=== PATIENT | male | born 1955 | race Caucasian/White ===

== ENCOUNTER 2017-01-04 03:59 | Inpatient (IN) | payer OTHER ==
[~2017-01-04] VITALS: Ht 167.6 cm; Wt 83.3 kg
[2017-01-04] VITALS (20 sets, daily range): BP systolic 116–140; BP diastolic 71–90; PULSE 46–64; RESP 12–16; O2SAT 96–100
[2017-01-04] MEDS ORDERED: SODIUM CHLOR 0.9% 1000 ML INJ 1,000 ML IV ONE (04:10)
--- NOTE | 2017-01-04 04:18 | RADRPT ---
EXAM DATE/TIME: 01/04/2017 04:03 [facility] COMPARISON: No previous studies available for comparison. INDICATIONS : Stroke alert; facial droop and left sided weakness. RADIATION DOSE: 56.35 CTDIvol (mGy) This report was called by Dr Bose to Dr. Napoles at 0416 hrs MEDICAL HISTORY : None SURGICAL HISTORY : None. ENCOUNTER: Initial ACUITY: 1 day PAIN SCALE: 0/10 LOCATION: cranial TECHNIQUE: Multiple contiguous axial images were obtained of the head. Using automated exposure control and adj ustment of the mA and/or kV according to patient size, radiation dose was kept as low as reasonably a chievable to obtain optimal diagnostic quality images. DICOM format image data is available electro nically for review and comparison. FINDINGS: CEREBRUM: The ventricles are normal for age. No evidence of midline shift, mass lesion, hemorrhage or acute in farction. No extra-axial fluid collections are seen. POSTERIOR FOSSA: The cerebellum and brainstem are intact. The 4th ventricle is midline. The cerebellopontine angle i s unremarkable. EXTRACRANIAL: The visualized portion of the orbits is intact. SKULL: The calvaria is intact. No evidence of skull fracture. CONCLUSION: Normal examination. This report was called to <Dr. napoles> at <<0416 hrs>. Myron Bose MD on January 04, 2017 at 4:16 Board Certified Radiologist. This report was verified electronically.
[2017-01-04 04:20] LABS: AUTOMATED NEUTROPHIL # 2.7 TH/MM3 (1.8-7.7); BASOPHIL # 0.1 TH/MM3 (0-0.2); EOSINOPHIL # 0.3 TH/MM3 (0-0.4); EOSINOPHIL % 5.1 % (0.0-4.0); HEMATOCRIT 41.1 % (39.0-51.0); HEMO FLAGS DIFF FINAL; LYMPH % 33.7 % (9.0-44.0); MEAN CELL VOLUME 83.9 FL (80.0-100.0); MEAN CORPUSCULAR HGB CONC 33.4 % (32.0-36.0); MONO % 13.8 % (0.0-8.0); NEUT % 46.4 % (16.0-70.0); PLATELET COUNT 188 TH/MM3 (150-450); RED CELL DISTRIBUTION WIDTH 14.6 % (11.6-17.2); WHITE BLOOD COUNT 5.9 TH/MM3 (4.0-11.0)
[2017-01-04 04:24] LABS: I-STAT POTASSIUM 3.8 MMOL/L (3.5-4.9); I-STAT SODIUM 141 MMOL/L (138-146)
[2017-01-04] MEDS ORDERED: IOHEXOL 350 MG/ML 10 ML VIAL (for RAD DIAG) IVCONTRAST ONE (04:26)
[2017-01-04 04:30] LABS: APTT (PATIENT) 24.1 SEC (24.3-30.1)
--- NOTE | 2017-01-04 04:32 | PD ---
HPI Chief Complaint: Stroke Alert Time Seen by Provider: 04:10 Travel History International Travel<30 days: No Contact w/Intl Traveler<30days: No Traveled to known affect area: No History of Present Illness HPI 61-year-old male presents to the emergency department by EMS transport from his hotel room for new onset left upper extremity weakness left-sided facial droop and slurred speech. Patient states he got up out of bed at 3 AM to go to the bathroom went to the bathroom finding on the way back from using the bathroom when he got into the bed he noticed he could not roll over towards his left and fell out of bed. Patient did not hit his head. Patient was not knocked unconscious. Patient did not injure his neck or back. Patient denies any pain. Patient was noted to not be able to use his left arm and called for his who immediately noticed he had left arm weakness and left facial droop and slurred speech. It was not noted it any left lower extremity weakness. Patient has remained awake and oriented. Patient denies any vision disturbance. Patient denies any difficulty swallowing. Patient has now pain. Patient has no head pain chest pain back pain abdominal pain or extremity pain. There is been no vomiting. Patient went to bed 7 PM normal. Patient did not awaken feeling weak or confused or noticing any inability with motor function or sensory function. No prior history of CVA. Patient has dyslipidemia and intermittently takes a statin medication and on no blood thinners. Patient is otherwise in good health. Patient's had no recent surgeries. No prior thrombolytic therapy. PFSH Past Medical History Narrative Medical Dyslipidemia, back surgery; no tobacco use: Nursing notes reviewed Hx Anticoagulant Therapy: Yes Social History Tobacco Use: No Allergies-Medications (Allergen,Severity, Reaction): Coded Allergies: No Known Allergies (Verified Allergy, Unknown, 01/04/17) Reported Meds & Prescriptions Reported Meds & Active Scripts Active Narrative Medication Statin drug Review of Systems Except as stated in HPI: all other systems reviewed are Neg General / Constitutional: No: Fever, Chills Eyes: No: Diploplia, Visual changes HENT: No: Headaches, Neck Stiffness, Neck Pain Cardiovascular: No: Chest Pain or Discomfort Respiratory: No: Shortness of Breath Gastrointestinal: No: Vomiting, Abdominal Pain Genitourinary: No: Flank Pain Musculoskeletal: No: Pain Skin: No Rash Neurologic: Positive: Weakness (left upper extremity facial droop), Slurred Speech, No: Headache, Change in Mentation, Paresthesia, Incontinence, Seizures Psychiatric: No: Anxiety Hematologic/Lymphatic: No: Easy Bruising Physical Exam Narrative GENERAL: Well-developed well-nourished male in no acute distress no respiratory distress with slurred speech, GCS 15 SKIN: Warm and dry. Old 4cm x 2 cm oval shaped bruise to left lower flank. HEAD: Atraumatic. Normocephalic. No scalp soft tissue swelling. EYES: Pupils equal and round. Extraocular muscles intact. No scleral icterus. No injection or drainage. ENT: No nasal bleeding or discharge. Mucous membranes pink and moist. Airway is patent. NECK: Trachea midline. No JVD. No midline tenderness to direct palpation along the cervical spine and no bony step-off. CARDIOVASCULAR: Regular rate and rhythm. RESPIRATORY: No accessory muscle use. Clear to auscultation. Breath sounds equal bilaterally. GASTROINTESTINAL: Abdomen soft, non-tender, nondistended. Hepatic and splenic margins not palpable. MUSCULOSKELETAL: Extremities without clubbing, cyanosis, or edema. No obvious deformities. No tenderness to palpation along the thoracic or lumbar spine on log roll of the patient. No erythema or abrasion. Old 4cm x 2 cm oval shaped bruise to left lower flank. NEUROLOGICAL: Awake and alert. GCS 15. No obvious cranial nerve deficits except for left facial droop. Motor grossly within normal limits. Five out of 5 muscle strength in the arms and legs except for weakness of the left upper extremity 2 over 5 and minimal weakness of the left lower extremity. No right lower leg limb ataxia mild left lower leg ataxia on [id number]. Sensory exam grossly intact as tested. Slurred speech. PSYCHIATRIC: Appropriate mood and affect; insight and judgment normal. Data Data Last Documented VS Orders Orders Ct Brain W/O Iv Contrast(Rout) (01/04/17 ) Activity Bed Rest (01/04/17 ) Electrocardiogram (01/04/17 ) I-Stat Creatinine (01/04/17 04:10) I-Stat Profile (01/04/17 04:10) Prothrombin Time / Inr (Pt) (01/04/17 04:10) Act Partial Throm Time (Ptt) (01/04/17 04:10) Complete Blood Count With Diff (01/04/17 04:10) Fibrinogen (01/04/17 04:10) Creatine Kinase (Cpk) (01/04/17 04:10) Troponin I (01/04/17 04:10) Ua Includes Microscopic (01/04/17 04:10) Drug Screen, Random Urine (01/04/17 04:10) Type And Screen (01/04/17 04:10) Cta Brain W Iv Contrast W 3d (01/04/17 04:10) Cta Neck W Iv Contrast W 3d (01/04/17 04:10) Consult Neurology (01/04/17 ) Blood Glucose (01/04/17 04:10) Ecg Monitoring (01/04/17 04:10) Neuro Checks Q2HX12,Q4H (01/04/17 04:10) Nursing Bedside Swallow Assess .ONCE (01/04/17 04:10) Iv Access Insert/Monitor (01/04/17 04:10) NPO (01/04/17 04:10) Oximetry (01/04/17 04:10) Oxygen Administration (01/04/17 04:10) Sodium Chlor 0.9% 1000 Ml Inj (Ns 1000 M (01/04/17 04:10) Resp Oxygen Ritesh C Titrat 1-4 L (01/04/17 04:10) Cath For Specimen (01/04/17 04:10) Iohexol 350 Inj (Omnipaque 350 Inj) (01/04/17 04:26) ^ Call Pharmacy (01/04/17 04:36) Nih Stroke Scale - Nihss .ONCE (01/04/17 04:36) Urinary Catheter Insert/Apply (01/04/17 04:36) Anticoagulant Alert (01/04/17 04:36) ^ Post Infusion Restrictions (01/04/17 04:36) ^ Medication Alert (01/04/17 04:36) Vital Signs (Adult) .As directed (01/04/17 04:36) Notify Dr: Blood Pressure (01/04/17 04:36) ^ Medication Alert (01/04/17 04:36) Alteplase Bolus (Activase Bolus) (01/04/17 04:45) Alteplase Drip (Activase Drip) (01/04/17 04:45) Sodium Chloride 0.9% Inj (Ns Inj) (01/04/17 04:45) [facility] [place]01/04/17 04:45) Resp Oxygen Ritesh C Titrat 1-4 L (01/04/17 ) Ct Brain W/O Iv Contrast(Rout) (01/05/17 ) (Hub Use Only)In Phy Cons/Ref (01/04/17 ) Mri Brain W&W/O Contrast (01/04/17 ) Lipid Profile (01/04/17 05:17) Lupus Anticoagulant Drvvt (01/04/17 05:17) Cardiolipin Abs Igg,Igm,Iga (01/04/17 05:17) Factor V (5) Mutation (Leiden) (01/04/17 05:17) Protein C Activity (01/04/17 05:17) Protein S Activity (01/04/17 05:17) Prothrombin [id number] Mutation (01/04/17 05:17) Consult Rehab Medicine (01/04/17 ) Consult Stroke Navigator (01/04/17 ) Scd Bilateral/Knee High [email or web address].QSHIFT (01/04/17 05:17) (Hub Use Only[facility] Admit Order (Ed Use Only) (01/04/17 ) Drupal Php Developer / Telemetry MARIXA.Q8H (01/04/17 05:34) Activity Bed Rest (01/04/17 05:34) Notify Dr: Other (01/04/17 05:34) Echo 2d Comp With Doppler (01/06/17 ) Labs Laboratory Tests Test 01/04/17 04:05 White Blood Count 5.9 TH/MM3 Red Blood Count 4.90 MIL/MM3 Hemoglobin 13.7 GM/DL Bedside Hemoglobin 13.9 G/DL Hematocrit 41.1 % Bedside Hematocrit 41.0 % Mean Corpuscular Volume 83.9 FL Mean Corpuscular Hemoglobin 28.0 PG Mean Corpuscular Hemoglobin Concent 33.4 % Red Cell Distribution Width 14.6 % Platelet Count 188 TH/MM3 Mean Platelet Volume 7.3 FL Neutrophils (%) (Auto) 46.4 % Lymphocytes (%) (Auto) 33.7 % Monocytes (%) (Auto) 13.8 % Eosinophils (%) (Auto) 5.1 % Basophils (%) (Auto) 1.0 % Neutrophils # (Auto) 2.7 TH/MM3 Lymphocytes # (Auto) 2.0 TH/MM3 Monocytes # (Auto) 0.8 TH/MM3 Eosinophils # (Auto) 0.3 TH/MM3 Basophils # (Auto) 0.1 TH/MM3 CBC Comment DIFF FINAL Differential Comment Prothrombin Time 11.0 SEC Prothromb Time International Ratio 1.0 RATIO Activated Partial Thromboplast Time 24.1 SEC Fibrinogen 291 mg/dL Bedside Sodium 141 MMOL/L Bedside Potassium 3.8 MMOL/L Bedside Chloride 107 MMOL/L Bedside Blood Urea Nitrogen 19 MG/DL Bedside Creatinine 0.9 MG/DL Bedside Glucose 103 MG/DL Hemoglobin A1c 5.2 % Total Creatine Kinase 157 U/L Troponin I LESS THAN 0.02 NG/ML Triglycerides Level 258 MG/DL Cholesterol Level 232 MG/DL LDL Cholesterol 121 MG/DL HDL Cholesterol 59.0 MG/DL Cholesterol/HDL Ratio 3.93 RATIO MDM Medical Decision Making Medical Screen Exam Complete: Yes Emergency Medical Condition: Yes Medical Record Reviewed: Yes Interpretation(s) EKG sinus bradycardia rate 50 K incomplete right bundle branch block no acute ST elevation or injury pattern change noted Last Impressions Neck CTA 01/04/17 0410 Signed Impressions: Service Date/Time: Wednesday, January 04, 2017 04:13 - CONCLUSION: Normal examination. There is eccentric calcification through the internal carotid bulbs without two-dimensional stenosis. Myron Bose MD Head CTA 01/04/17 0410 Signed Impressions: Service Date/Time: Wednesday, January 04, 2017 04:14 - CONCLUSION: Normal examination. Myron Bose MD Head CT 01/04/17 0000 Signed Impressions: Service Date/Time: Wednesday, January 04, 2017 04:03 - CONCLUSION: Normal examination. This report was called to <Dr. napoles> at <<0416 hrs>. Myron Bose MD CBC & BMP Diagram 01/04/17 04:05 Vital Signs Date Time Temp Pulse Resp B/P (MAP) Pulse Ox O2 Delivery O2 Flow Rate FiO2 01/04/17 05:00 55 14 122/80 (94) 100 Nasal Cannula 4.00 01/04/17 04:45 56 15 121/77 (92) 100 Nasal Cannula 4.00 01/04/17 04:38 14 100 Nasal Cannula 4.00 01/04/17 04:31 54 12 134/83 (100) 100 Nasal Cannula 4.00 01/04/17 04:20 17 100 4.00 01/04/17 04:00 100 Nasal Cannula 4.00 01/04/17 03:59 97 4.00 01/04/17 03:59 97 Nasal Cannula 4.00 Differential Diagnosis Stroke alert, ICH, TIA Narrative Course @ 0400 stroke alert called At 403 patient's case discussed with on-call neurologist Dr. Rosenbaum who is on his way in to see the patient and concurs patient is a thrombolysis patient if CT brain noncontrast is without evidence of intracranial bleed or mass. At 4:05 AM patient is on way to CT; in CT no change in symptoms, NIHSS:8 at 4:21 AM per reading radiologist Dr. Bose CT brain noncontrast is negative. At 4:[address] Rosenbaum notified of CT brain negative and aware patient undergoing CTA brain and neck and tpa has been initiated after patient and spouse consent @ 4:27 return to ED C34, at bedside Physician Communication Physician Communication stat call to neurologist commanding officer traffic division; CT neg per Dr Barakat; CTA neg per Dr Bose Diagnosis Primary Impression: Stroke Admitting Information Admitting Physician Requests: Admit Scripts Aspirin (Px Aspirin) 325 Mg Tab 325 MG PO DAILY for Blood Clot Prevention, #90 TAB Prov: Aydin Ortega DO 01/08/17 Atorvastatin (Atorvastatin) 40 Mg Tab 40 MG PO HS for Cholesterol Management, #90 TAB 3 Refills Prov: Aydin Ortega DO 01/08/17 Peggy Napoles MD Jan 04, 2017 04:32
[2017-01-04] MEDS ORDERED: ROSU5 PO (04:39)
--- NOTE | 2017-01-04 04:42 | RADRPT ---
EXAM DATE/TIME: 01/04/2017 04:14 [facility] COMPARISON: No previous studies available for comparison. INDICATIONS : Stroke alert; facial droop and left sided weakness. IV CONTRAST: 80 cc Omnipaque 350 (iohexol) IV ; Cumulative dose for multiple exams. RADIATION DOSE: 28.73 CTDIvol (mGy) ; Combined studies MEDICAL HISTORY : None SURGICAL HISTORY : None. ENCOUNTER: Initial ACUITY: 1 day PAIN SCALE: 0/10 LOCATION: cranial TECHNIQUE: Volumetric scanning was performed using a multi-row detector CT scanner. The data was post processed with a variety of visualization algorithms including full volume maximum intensity projection, multi -planar sliding thin slab reformation, curved planar reformation, and surface rendering techniques. Using automated exposure control and adjustment of the mA and/or kV according to patient size, radiat ion dose was kept as low as reasonably achievable to obtain optimal diagnostic quality images. DICO M format image data is available electronically for review and comparison. FINDINGS: There is excellent visualization of the major intracranial arteries out to the second-order branch ve ssels. There is no evidence for aneurysm, vessel truncation or stenosis, and no evidence for vascula r malformation. CONCLUSION: Normal examination. Myron Bose MD on January 04, 2017 at 4:40 Board Certified Radiologist. This report was verified electronically.
[2017-01-04 04:43] LABS: CREATINE KINASE 157 U/L (39-308)
[2017-01-04] MEDS ORDERED: ALTEPLASE DRIP IV ONE (04:45)
[2017-01-04] MEDS ORDERED: MISCELLANEOUS NURSING INFORMATION XX PRN (04:45)
[2017-01-04] MEDS ORDERED: ALTEPLASE BOLUS 9 MG/9 ML SYR IV ONE (04:45)
[2017-01-04] MEDS ORDERED: SODIUM CHLORIDE 0.9% 50 ML BAG IVF ONE (04:45)
--- NOTE | 2017-01-04 04:47 | RADRPT ---
EXAM DATE/TIME: 01/04/2017 04:13 [facility] COMPARISON: No previous studies available for comparison. INDICATIONS : Stroke alert; facial droop and left sided weakness. IV CONTRAST: 80 cc Omnipaque 350 (iohexol) IV ; Cumulative dose for multiple exams. RADIATION DOSE: 28.73 CTDIvol (mGy) ; Combined studies MEDICAL HISTORY : None SURGICAL HISTORY : None. ENCOUNTER: Initial ACUITY: 1 day PAIN SCALE: 0/10 LOCATION: neck Elevated flow velocities and ICA/CCA ratios have been found to correlate with increased degrees of vessel stenosis, calculated as percentage of diameter relative to a normal segment of distal ICA/CCA. TECHNIQUE: Volumetric scanning was performed using a multirow detector CT scanner. The data was post processed with a variety of visualization algorithms including full-volume maximum intensity projection, multip lanar sliding thin-slab reformation, curved-planar reformation, and surface-rendering techniques. Us ing automated exposure control and adjustment of the mA and/or kV according to patient size, radiatio n dose was kept as low as reasonably achievable to obtain optimal diagnostic quality images. DICOM f ormat image data is available electronically for review and comparison. FINDINGS: AORTIC ARCH: There is a three-vessel origin of the great vessels from the aorta. No evidence of ostial narrowing. RIGHT CAROTID: The common carotid artery is intact. The carotid bulb has a normal configuration without ulceration o r narrowing. The internal carotid artery lumen is smooth without stenosis. The external carotid varinder ry is intact. LEFT CAROTID: The common carotid artery is intact. The carotid bulb has a normal configuration without ulceration or narrowing. The internal carotid artery lumen is smooth without stenosis. The external carotid ar jane is intact. VERTEBRALS: The vertebral arteries have a symmetric diameter. No stenotic lesions are seen. CONCLUSION: Normal examination. There is eccentric calcification through the internal carotid bulbs without two- dimensional stenosis. Myron Bose MD on January 04, 2017 at 4:43 Board Certified Radiologist. This report was verified electronically.
[2017-01-04] MEDS: SODIUM CHLOR 0.9% 1000 ML INJ 1,000 ML IV SCH ×2 (05:46→06:30)
[2017-01-04] MEDS ORDERED: DEXTROSE 50% IN WATER 50 ML VIAL(D50) IV PUSH PRN (06:00)
[2017-01-04] MEDS ORDERED: LABETALOL HCL 100 MG/20 ML VIAL IV PUSH PRN (06:00)
[2017-01-04] MEDS ORDERED: niCARdipine INJ 25 MG in SODIUM CHLOR 0.9% 250 ML INJ 240 ML IV PRN (06:00)
[2017-01-04] MEDS ORDERED: GLUCAGON 1 MG/ML VIAL OTHER PRN (06:00)
[2017-01-04] MEDS ORDERED: SODIUM CHLORIDE 0.9% FLUSH 5 ML FLUSH IV FLUSH PRN (06:00)
[2017-01-04 06:29] LABS: BLOOD, URINE NEG (NEG); GLUCOSE,URINE NEG (NEG); KETONE, URINE NEG (NEG); NITRITE,URINE NEG (NEG); SQUAMOUS EPITHELIAL CELL URINE <1 /hpf (0-5); URINE COLOR YELLOW (YELLW/STRAW)
--- NOTE | 2017-01-04 06:38 | HHI.HP ---
HPI Service Critical Care Medicine Primary Care Physician No Primary Care Physician Admission Diagnosis stroke alert w/ tpa Diagnosis: Travel History International Travel<30 Days: No Contact w/Intl Traveler <30 Da: No Traveled to Known Affected Are: No History of Present Illness 61 year old [id number] male with past medical history of hyperlipidemia who presented to [facility] emergency department with left hemiparesis and left facial droop. He states he went to bed last night at around 10 PM. He woke up around 3 AM to go to the bathroom and states he ambulated to the bathroom without difficulty. He states he then woke up again at about 3:30 or 4 AM and he says his left upper extremity was tangled around in the bed sheets but he realized that he could not move it to get it untangled and then rolled off the bed to the floor. No head trauma or LOC. He alerted his who noticed he had L facial droop and L hemiparesis. No prior h /o stroke or A fib. Stroke alert was called. CT brain was negative. He was evaluated by Dr. Rosenbaum. He received TPA at 04:29. He has some slurred speech. Left hemiparesis is improving. He denies headache, seizures, neck pain. Remainder of review of systems negative Review of Systems Constitutional: DENIES: Fever Eyes: DENIES: Blurred vision, Eye pain, Vision loss Respiratory: DENIES: Shortness of breath Cardiovascular: DENIES: Chest pain, Syncope Musculoskeletal: DENIES: Back pain, Neck pain Integumentary: DENIES: Rash Neurologic: DENIES: Headache Psychiatric: DENIES: Confusion Past Family Social History Allergies: Coded Allergies: No Known Allergies (Verified Allergy, Unknown, 01/04/17) Past Medical History Hyperlipidemia Tobacco abuse Past Surgical History Back surgery Reported Medications Crestor Family History Mother had atrial fibrillation. No family history of stroke Social History [id number] history of smoking. Quit smoking 5 years ago and. Drinks 2 beers a day Denies use of illicit drugs Works as a industrial truck mechanic. . Physical Exam Vital Signs Vital Signs Date Time Temp Pulse Resp B/P (MAP) Pulse Ox O2 Delivery O2 Flow Rate FiO2 01/04/17 06:15 59 12 128/73 (91) 100 Nasal Cannula 4.00 01/04/17 06:02 46 12 116/71 (86) 99 Nasal Cannula 4.00 01/04/17 05:49 52 12 132/71 (91) 99 Nasal Cannula 4.00 01/04/17 05:28 60 16 140/83 (102) 100 Nasal Cannula 4.00 01/04/17 05:15 58 13 129/90 (103) 100 Nasal Cannula 4.00 01/04/17 05:00 55 14 122/80 (94) 100 Nasal Cannula 4.00 01/04/17 04:45 56 15 121/77 (92) 100 Nasal Cannula 4.00 01/04/17 04:38 14 100 Nasal Cannula 4.00 01/04/17 04:31 54 12 134/83 (100) 100 Nasal Cannula 4.00 01/04/17 04:20 17 100 4.00 01/04/17 04:01 54 12 124/74 (91) 96 Nasal Cannula 4.00 01/04/17 04:00 100 Nasal Cannula 4.00 01/04/17 03:59 97 4.00 01/04/17 03:59 97 Nasal Cannula 4.00 Physical Exam Drips: 2.9 NaCl at 70 mL per hour GENERAL: Well-nourished, well-developed patient who is laying flat in ISC bed. SKIN: Warm and dry. HEAD: Atraumatic. Normocephalic. EYES: Pupils equal and round, reactive 3 mm bilaterally.. No scleral icterus. No injection or drainage. ENT: No nasal bleeding or discharge. NECK: Trachea midline. No JVD. CARDIOVASCULAR: Regular rate and rhythm, sinus rhythm on monitor with rate in the 70s.. No murmurs rubs or gallops. RESPIRATORY: No accessory muscle use. Clear to auscultation. Breath sounds equal bilaterally. On room air GASTROINTESTINAL: Abdomen soft, non-tender, nondistended. Bowel sounds present : Handley in place. He'll urine output. MUSCULOSKELETAL: Extremities without clubbing, cyanosis, or edema. No obvious deformities. NEUROLOGICAL: Awake and alert. Left facial droop. Movements intact. Normal tongue protrusion. Motor grossly within normal limits. Speech is slurred. Normal naming. Sensation intact. Strength 5 out of 5 on the right upper and right lower extremities throughout. Strength 5 out of 5 left ankle plantar and dorsiflexion. 4+ out of 5 left hip flexion and hamstrings. Strength 5 out of 5 left biceps and triceps. Strength 2 out of 5 left hand intrinsics. Laboratory Laboratory Tests Test 01/04/17 04:05 01/04/17 06:20 White Blood Count 5.9 Red Blood Count 4.90 Hemoglobin 13.7 Bedside Hemoglobin 13.9 Hematocrit 41.1 Bedside Hematocrit 41.0 Mean Corpuscular Volume 83.9 Mean Corpuscular Hemoglobin 28.0 Mean Corpuscular Hemoglobin Concent 33.4 Red Cell Distribution Width 14.6 Platelet Count 188 Mean Platelet Volume 7.3 Neutrophils (%) (Auto) 46.4 Lymphocytes (%) (Auto) 33.7 Monocytes (%) (Auto) 13.8 Eosinophils (%) (Auto) 5.1 Basophils (%) (Auto) 1.0 Neutrophils # (Auto) 2.7 Lymphocytes # (Auto) 2.0 Monocytes # (Auto) 0.8 Eosinophils # (Auto) 0.3 Basophils # (Auto) 0.1 CBC Comment DIFF FINAL Differential Comment Prothrombin Time 11.0 Prothromb Time International Ratio 1.0 Activated Partial Thromboplast Time 24.1 Fibrinogen 291 Bedside Sodium 141 Bedside Potassium 3.8 Bedside Chloride 107 Bedside Blood Urea Nitrogen 19 Bedside Creatinine 0.9 Bedside Glucose 103 Total Creatine Kinase 157 Troponin I LESS THAN 0.02 Urine Color YELLOW Urine Turbidity CLEAR Urine pH 6.0 Urine Specific [place] GREATER THAN 1.050 Urine Protein TRACE Urine Glucose (UA) NEG Urine Ketones NEG Urine Occult Blood NEG Urine Nitrite NEG Urine Bilirubin NEG Urine Urobilinogen LESS THAN 2.0 Urine Leukocyte Esterase NEG Urine RBC 2 Urine WBC 1 Urine Squamous Epithelial Cells <1 Result Diagram: 01/04/17 0405 Caprini VTE Risk Assessment Caprini VTE Risk Assessment: Mod/High Risk (score >= 2) VTE Pharm Contraindication: status post TPA Caprini Risk Assessment Model Point Value = 1 Point Value = 2 Point Value = 3 Point Value = 5 Age 41-60 Minor surgery BMI > 25 kg/m2 Swollen legs Varicose veins or History of unexplained or recurrent spontaneous Oral contraceptives or hormone replacement Sepsis (< 1 month) Serious lung disease, including pneumonia (< 1 month) Abnormal pulmonary function Acute myocardial infarction Congestive heart failure (< 1 month) History of inflammatory bowel disease Medical patient at bed rest Age 61-74 Arthroscopic surgery Major open surgery (> 45 min) Laparoscopic surgery (> 45 min) Malignancy Confined to bed (> 72 hours) Immobilizing plaster cast Central venous access Age >= 75 History of VTE Family history of VTE Factor V Leiden Prothrombin [id number] Lupus anticoagulant Anticardiolipin antibodies Elevated serum homocysteine Heparin-induced thrombocytopenia Other congenital or acquired thrombophilia Stroke (< 1 month) Elective arthroplasty Hip, pelvis, or leg fracture Acute spinal cord injury (< 1 month) Prophylaxis Regimen Total Risk Factor Score Risk Level Prophylaxis Regimen 0-1 Low Early ambulation 2 Moderate Order ONE of the following: *Sequential Compression Device (SCD) *Heparin 5000 units SQ BID 3-4 Higher Order ONE of the following medications: *Heparin 5000 units SQ TID *Enoxaparin/Lovenox 40 mg SQ daily (WT < 150 kg, CrCl > 30 mL/min) *Enoxaparin/Lovenox 30 mg SQ daily (WT < 150 kg, CrCl > 10-29 mL/min) *Enoxaparin/Lovenox 30 mg SQ BID (WT < 150 kg, CrCl > 30 mL/min) AND/OR *Sequential Compression Device (SCD) 5 or more Highest Order ONE of the following medications: *Heparin 5000 units SQ TID (Preferred with Epidurals) *Enoxaparin/Lovenox 40 mg SQ daily (WT < 150 kg, CrCl > 30 mL/min) *Enoxaparin/Lovenox 30 mg SQ daily (WT < 150 kg, CrCl > 10-29 mL/min) *Enoxaparin/Lovenox 30 mg SQ BID (WT < 150 kg, CrCl > 30 mL/min) AND *Sequential Compression Device (SCD) Assessment and Plan Problem List: (1) Acute ischemic stroke ICD Code: I63.9 - Cerebral infarction, unspecified Status: Acute (2) Hyperlipidemia ICD Code: E78.5 - Hyperlipidemia, unspecified Status: Chronic (3) Noncompliance with medication regimen ICD Code: Z91.14 - Patient's other noncompliance with medication regimen Status: Chronic (4) Received intravenous tissue plasminogen activator (tPA) in emergency department ICD Code: Z92.82 - Status post administration of tPA (rtPA) in a different facility within the last 24 hours prior to admission to current facility Status: Acute (5) H/O tobacco use, presenting hazards to health ICD Code: Z87.891 - Personal history of nicotine dependence Status: Resolved Assessment and Plan NEURO: Acute ischemic stroke CT brain 01/04negative CTA brain and neck 01/04 - negative. Calcification noted internal carotid bulbs without stenosis. Status post TPA 01/04 04:29. No antiplatelets or anticoagulants for 24 hours. Telemetry monitoring Follow-up Echo, lipid panel, hypercoagulable workup, MRI brain Urine drug screen negative Rehabilitation medicine consult. PT/OT. Neurology following, Dr. Rosenbaum RESP: Prior history of tobacco abuse CV: Hyperlipidemia Patient has been on Crestor but reports medication nonadherence. Stressed importance of lipid management for. Prevention of stroke. Nicardipine as needed to maintain systolic blood pressure <185/DBP <110 GI: Passed swallow evaluation. Regular diet. FEN/RENAL: Handley in place status post TPA. Creatinine normal. Monitor intake and output, electrolytes, 0.9 NaCl at 70 L per hour ID: Monitor for signs and symptoms of infection HEME: Monitor for evidence of bleeding status post TPA. ENDO: Euglycemic. Hemoglobin A1c pending. PROPH: SCDs for DVT prophylaxis. Hold pharmacologic DVT prophylaxis until 24 hours after TPA/follow-up imaging. Famotidine 20 mill grams IV every 12 hours for stress ulcer prophylaxis. ACCESS: Peripheral IV providing adequate access at this time. Patient updated at bedside. Discussed with C[facility] Level III H&P Tanya Solis MD Jan 04, 2017 06:38
--- NOTE | 2017-01-04 06:59 | MB ---
cc: FRANCISCO REYNA M.D. DATE OF CONSULTATION 01/04/2017 REASON FOR CONSULTATION Stroke Alert. REFERRING PHYSICIAN Dr. Ferrer HISTORY OF PRESENT ILLNESS Mr. Hanna is a 61-year-old man, previously healthy with hypercholesterolemia. This morning he woke up around 03:00 a.m. to go to the bathroom and at that time was neurologically normal. When he was coming back into bed, he noticed that he had difficulty rolling over and fell out of bed, was then weak on the left side. There was no bruising at all. No loss of consciousness. He had no headache but he noted weakness in the left arm and left leg, states he could barely move the left arm. Had slurring of speech. 9-- was called and EMS responded. Stroke Alert was called and the patient was transported to the ER. Upon arrival, I discussed the case with Dr. Ferrer, reviewed the CT of the brain which was negative. The patient had no contraindications to t-PA. Therefore t-PA was initiated intravenously per protocol. The initial NIH Stroke Scale was 8. Therefore CT angiogram was performed of both the brain and the neck, both of which were normal. There is no evidence for any large vessel occlusion, no evidence for any carotid disease. The patient notes that since starting the t-PA he is beginning to improve with regard to the left-sided strength. He is now able to move the left arm and left leg much better than previous. He has no prior history of stroke or TIA symptoms. PAST MEDICAL HISTORY 1. Dyslipidemia. 2. Back surgery. MEDICATIONS AT HOME 1. Crestor which he takes but not routinely. 2. He takes aspirin every now and then for headache but not routinely. ALLERGIES None known. NEUROLOGICAL EXAMINATION On neurological examination his blood pressure is 122/80, pulse is 55, respiratory rate is 14. EKG/Telemetry shows sinus rhythm. HIGHER CORTICAL FUNCTION: He is alert and oriented x3. Follows commands well. There is no evidence of any aphasia. His speech is moderately dysarthric. CRANIAL NERVE EXAMINATION: The pupils are equal, reactive. The extraocular movements are full. Visual perkins normal to confrontation. He does have a moderate left upper motor neuron cranial nerve VII palsy. Other cranial nerves are intact. MOTOR: On motor exam he has weakness in the left arm. He has drift in the left upper extremity. After several seconds he is rated at about to 4/5 strength in the left arm proximally and distally. Left leg has drift as well after 3 or 4 seconds rated at 4/5 strength proximal and distal with normal strength in the right arm and right leg. Diminished fine motor skills left hand. REFLEXES: 2+ symmetric. Equivocal Babinski on the left IMAGING STUDIES CT of the brain is normal. CTA of the brain is normal. CTA of the neck is normal. LABORATORY DATA The white count is 5900, hemoglobin 13.7, hematocrit 41%, platelets 188,000. Sodium is 141, potassium 3.8, chloride 107, BUN is 19, creatinine 0.9, glucose 103. CPK 157, PT 11, INR 1, APTT 24.1. CARDIAC TELEMETRY Normal sinus rhythm. IMPRESSION Acute right hemispheric stroke. The patient meets all of the inclusion criteria for IV t-PA and is currently receiving IV t-PA, showing signs of improvement. There is no sign of large vessel occlusive disease on the CT angiogram, therefore he does not require interventional thrombotic removal therapy. RECOMMENDATIONS 1. The patient will be admitted to the ICU with close monitoring per the post t-PA protocol with no antiplatelets or anticoagulants for 24 hours post t-PA administration. We will check a CT brain 24 hours post t-PA as well. 2. Recommend further evaluation with MRI/MRA brain, echocardiogram, monitoring cardiac telemetry to rule out A-fib. 3. Given his relative young age we will check labs including a lipid panel, hypercoagulable workup. 4. Also consult rehab medicine. MD TORRES Kinney/TODD /5:18 AM /6:50 AM
[2017-01-04] MEDS: INSULIN ASPART SUPPLEMENTAL SCALE SQ SCH ×5 (07:42→21:04)
[2017-01-04] MEDS: SODIUM CHLORIDE 0.9% FLUSH 5 ML FLUSH IV FLUSH SCH ×2 (09:00→21:04)
[2017-01-04] MEDS: FAMOTIDINE 20 MG/2 ML VIAL IV PUSH SCH ×2 (09:41→21:03)
[2017-01-04] MEDS ORDERED: GADODIAMIDE PF 287 MG/ML 5 ML VIAL (for RAD MRI) IVCONTRAST ONE (12:05)
--- NOTE | 2017-01-04 13:06 | RADRPT ---
EXAM DATE/TIME: 01/04/2017 11:48 [facility] COMPARISON: CTA BRAIN W 3D RECON, January 04, 2017, 4:14. INDICATIONS : CVA. CONTRAST: 16 cc Omniscan (gadodiamide) IV MEDICAL HISTORY : Stroke SURGICAL HISTORY : Fusion, lumbar. ENCOUNTER: Initial ACUITY: 1 day PAIN SCORE: 4/10 LOCATION: Bilateral cranial TECHNIQUE: Multiplanar, multisequence MRI of the brain was performed both prior to and following the administrat ion of paramagnetic contrast. FINDINGS: There is the focal area of restricted diffusion extending from extreme capsule to internal capsule on the right involving posterior limb internal capsule consistent with acute ischemic event without hem orrhage. The left hemisphere is unremarkable Ventricular size is appropriate There is no parenchymal hemorrhage Posterior fossa is normal. There is abnormal contrast enhancement. CONCLUSION: Restricted diffusion extending across the posterior limb internal capsule right hemisphere consistent with acute stroke without hemorrhage. Juan F Rubio MD FACR on January 04, 2017 at 12:40 Board Certified Radiologist. This report was verified electronically.
[2017-01-04 15:55] LABS: HEMOGLOBIN A1a 1.1 %; HEMOGLOBIN A1b 1.5 %; HEMOGLOBIN Ao 85.5 %; HEMOGLOBIN LA1C 2.2 %; HEMOGLOBIN P3 5.4 %
--- NOTE | 2017-01-04 19:04 | EKG ---
Date Performed: 01/04/2017 Time Performed: 04:03:34 PTAGE: 61 years EKG: SINUS BRADYCARDIA INCOMPLETE RIGHT BUNDLE BRANCH BLOCK BORDERLINE ECG NO PREVIOUS TRACING DOCTOR: Favio Garcia Interpretating Date/Time 01/04/2017 19:03:52
[2017-01-05] VITALS (12 sets, daily range): PULSE 49–74; O2SAT 97
--- NOTE | 2017-01-05 05:12 | RADRPT ---
EXAM DATE/TIME: 01/05/2017 05:01 [facility] COMPARISON: CT BRAIN W/O CONTRAST, January 04, 2017, 4:03. MRI BRAIN W & W/O CONTRAST, January 04, 2017, 11:4 8. INDICATIONS : Post TPA. RADIATION DOSE: 34.48 CTDIvol (mGy) MEDICAL HISTORY : None SURGICAL HISTORY : None. ENCOUNTER: Subsequent ACUITY: 1 day PAIN SCALE: 0/10 LOCATION: cranial TECHNIQUE: Multiple contiguous axial images were obtained of the head. Using automated exposure control and adj ustment of the mA and/or kV according to patient size, radiation dose was kept as low as reasonably a chievable to obtain optimal diagnostic quality images. DICOM format image data is available electro nically for review and comparison. FINDINGS: CEREBRUM: There is a 1.3 x 1.1 cm area of edema within the basal ganglia on the right new since the previous he ad CT clearly an acute lacunar stroke. The edema does extend slightly into the centrum semi-ovale reg ion although its margins are obvious on previous MRI. The ventricles are normal for age. No evidence of midline shift, mass lesion, hemorrhage or acute infarction. No extra-axial fluid collections are seen. POSTERIOR FOSSA: The cerebellum and brainstem are intact. The 4th ventricle is midline. The cerebellopontine angle i s unremarkable. EXTRACRANIAL: The visualized portion of the orbits is intact. SKULL: The calvaria is intact. No evidence of skull fracture. CONCLUSION: Small evolving stroke in the basal ganglia on the right extending into the deep white matter tracks. Corresponds exactly with previous MRI. No evidence of hemorrhage. No additional lesions are seen. Myron Bose MD on January 05, 2017 at 5:08 Board Certified Radiologist. This report was verified electronically.
[2017-01-05 05:13] LABS: AUTOMATED NEUTROPHIL # 5.6 TH/MM3 (1.8-7.7); BASOPHIL % 0.5 % (0.0-2.0); EOSINOPHIL # 0.2 TH/MM3 (0-0.4); EOSINOPHIL % 2.6 % (0.0-4.0); HEMATOCRIT 40.9 % (39.0-51.0); HEMO FLAGS DIFF FINAL; LYMPH % 18.7 % (9.0-44.0); LYMPHOCYTE # 1.5 TH/MM3 (1.0-4.8); MEAN CELL VOLUME 84.7 FL (80.0-100.0); MEAN CORPUSCULAR HEMOGLOBIN 28.9 PG (27.0-34.0); MEAN CORPUSCULAR HGB CONC 34.1 % (32.0-36.0); MONO % 9.7 % (0.0-8.0); NEUT % 68.5 % (16.0-70.0); PLATELET COUNT 177 TH/MM3 (150-450); RED BLOOD COUNT 4.83 MIL/MM3 (4.50-5.90); RED CELL DISTRIBUTION WIDTH 14.5 % (11.6-17.2); WHITE BLOOD COUNT 8.3 TH/MM3 (4.0-11.0)
[2017-01-05 05:46] LABS: HDL CHOLESTEROL 53.2 MG/DL (40.0-60.0)
[2017-01-05] MEDS: INSULIN ASPART SUPPLEMENTAL SCALE SQ SCH ×4 (08:00→21:00)
[2017-01-05] MEDS: FAMOTIDINE 20 MG/2 ML VIAL IV PUSH SCH ×2 (08:00→20:54)
[2017-01-05] MEDS: SODIUM CHLORIDE 0.9% FLUSH 5 ML FLUSH IV FLUSH SCH ×2 (09:00→21:00)
[2017-01-05] MEDS: SODIUM CHLOR 0.9% 1000 ML INJ 1,000 ML IV SCH (10:22)
--- NOTE | 2017-01-05 15:33 | HHI.PR ---
Subjective Remarks Follow up for right internal capsule stroke. Patient is currently doing well. He is left upper extremity is much weaker than his left lower extremity. He still has slurred speech. is at bedside. Denies any chest pain, shortness of breath or fever or chills. Objective Vitals Vital Signs Date Time Temp Pulse Resp B/P (MAP) Pulse Ox O2 Delivery O2 Flow Rate FiO2 01/05/17 08:22 97 Nasal Cannula 01/05/17 08:00 54 01/05/17 07:00 97 Room Air 01/05/17 06:00 49 01/05/17 04:00 50 01/05/17 00:00 50 01/04/17 22:00 54 01/04/17 20:55 96 21 01/04/17 20:00 54 01/04/17 19:00 100 Room Air 01/04/17 18:00 54 01/04/17 16:00 58 I/O 01/04/17 01/04/17 01/04/17 01/05/17 01/05/17 01/05/17 07:00 15:00 23:00 07:00 15:00 23:00 Intake Total 273.5 ml 960 ml Output Total 1300 ml 1400 ml Balance 273.5 ml -340 ml -1400 ml Intake Oral 960 ml IV Total 273.5 ml Output Urine Total 1300 ml 1400 ml # Bowel Movements 0 Result Diagram: 01/05/17449 Imaging Last Impressions Head CT 01/05/17 0000 Signed Impressions: Service Date/Time: Thursday, January 05, 2017 05:01 - CONCLUSION: Small evolving stroke in the basal ganglia on the right extending into the deep white matter tracks. Corresponds exactly with previous MRI. No evidence of hemorrhage. No additional lesions are seen. Myron Bose MD Neck CTA 01/04/17 0410 Signed Impressions: Service Date/Time: Wednesday, January 04, 2017 04:13 - CONCLUSION: Normal examination. There is eccentric calcification through the internal carotid bulbs without two-dimensional stenosis. Myron Bose MD Head CTA 01/04/17 0410 Signed Impressions: Service Date/Time: Wednesday, January 04, 2017 04:14 - CONCLUSION: Normal examination. Myron Bose MD Brain MRI 01/04/17 0000 Signed Impressions: Service Date/Time: Wednesday, January 04, 2017 11:48 - CONCLUSION: Restricted diffusion extending across the posterior limb internal capsule right hemisphere consistent with acute stroke without hemorrhage. Juan F Rubio MD FACR Objective Remarks GENERAL: Alert, oriented 3, NAD. SKIN: Warm and dry. HEAD: Normocephalic. EYES: No scleral icterus. No injection or drainage. NECK: Supple, trachea midline. No JVD or lymphadenopathy. CARDIOVASCULAR: Regular rate and rhythm without murmurs, gallops, or rubs. RESPIRATORY: Breath sounds equal bilaterally. No accessory muscle use. GASTROINTESTINAL: Abdomen soft, non-tender, nondistended. MUSCULOSKELETAL: No cyanosis, or edema. Significant weakness on the left lower extremity as well as left upper extremity. BACK: Nontender without obvious deformity. No CVA tenderness. Procedures TPA administration on 01/04/2017. A/P Problem List: (1) Acute ischemic stroke ICD Code: I63.9 - Cerebral infarction, unspecified Status: Acute (2) Hyperlipidemia ICD Code: E78.5 - Hyperlipidemia, unspecified Status: Chronic Assessment and Plan 61 year old useun-dzah-vnrmhvaj male with past medical history of hyperlipidemia who presented to [facility] emergency department on 01/04/2017 with left hemiparesis and left facial droop. No prior h/o stroke or A fib. He was evaluated by Dr. Rosenbaum. He received TPA at 04:29. He was subsequently observed in the ICU. - Acute ischemic stroke - MRI indicates involvement of posterior limb of right sided internal capsule. - Status post TPA administration. - Patient never required Cardene drip for blood pressure control - No antiplatelet therapy for 24 hours from the time TPA was given. - We'll wait for neurology for further recommendation. Patient can likely start aspirin in the morning. - Head and neck CTA unremarkable - Echocardiogram pending. - Hyperlipidemia - Triglyceride 343, total cholesterol 228, LDL 106, HDL 53.2. - We'll start patient on Lipitor 40 mg daily at bedtime. - If unable to tolerate, encouraged patient to discuss with his primary care provider regarding other statins. Full code. Ambulation. Discharge plan: If okay with neurology, we will discharge patient home tomorrow on antiplatelet therapy recommended by Neurology. Aydin Ortega DO Jan 05, 2017 3:33 pm
--- NOTE | 2017-01-05 20:43 | HHI.PR ---
Review/Management Diagnosis right basal ganglia cva, s/p iv TPA Plan start aspirin 325 mg daily continue statin follow up on the echocardiogram. monitor cardiac telemetry I recommend continued in patient monitoring due to location of the stroke and the degree of deficit 2-3 more days. If stable, anticipate d/c Wednesday. Ok to transfer to [address] [place] [address] tomorrow if stable. Continue PT/OT./ Speech therapy. Diagnosis/Plan: Subjective Subjective Comments No acute events reported still weak left side involving arm and leg Active Medications Current Medications Medications (Trade) Dose Ordered Sig/Melvin Route Start Time Stop Time Status Last Admin (NS Flush) 2 ml BID IV FLUSH 01/04/17 09:00 01/05/17 09:00 (NS Flush) 2 ml UNSCH PRN IV FLUSH 01/04/17 06:00 (Trandate Inj) 10 mg Q2H PRN IV PUSH 01/04/17 06:00 (NovoLOG SUPPLEMENTAL SCALE) 1 ACHS SQ 01/04/17 08:00 (D50w (Vial) Inj) 50 ml UNSCH PRN IV PUSH 01/04/17 06:00 (Glucagon Inj) 1 mg UNSCH PRN OTHER 01/04/17 06:00 (Pepcid Inj) 20 mg Q12H IV PUSH 01/04/17 08:00 01/05/17 08:00 (Lipitor) 40 mg HS PO 01/05/17 21:00 Allergies Allergies Coded Allergies No Known Allergies (Verified Allergy, Unknown, 01/04/17) Exam I&O / VS 01/05/17 01/05/17 01/06/17 15:00 23:00 07:00 Intake Total 960 ml Output Total 900 ml Balance 60 ml Intake Oral 960 ml Output Urine Total 900 ml # Voids 3 Vital Signs Date Time Temp Pulse Resp B/P (MAP) Pulse Ox O2 Delivery O2 Flow Rate FiO2 01/05/17 18:00 67 01/05/17 16:00 52 01/05/17 14:00 74 01/05/17 12:00 64 01/05/17 10:00 60 01/05/17 08:22 97 Nasal Cannula 01/05/17 08:00 54 01/05/17 07:00 97 Room Air 01/05/17 06:00 49 01/05/17 04:00 50 01/05/17 00:00 50 01/04/17 22:00 54 01/04/17 20:55 96 21 Exam Comments alert, speech dysarthric CN --left upper motor neuron cn 7 palsey. 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 2/5 proximal LUE. 4/5 LLE Objective Radiology Results MRI--completed cva right basal ganglia, internal capsule Micro and Labs Laboratory Tests Test 01/05/17 04:50 White Blood Count 8.3 Red Blood Count 4.83 Hemoglobin 14.0 Hematocrit 40.9 Mean Corpuscular Volume 84.7 Mean Corpuscular Hemoglobin 28.9 Mean Corpuscular Hemoglobin Concent 34.1 Red Cell Distribution Width 14.5 Platelet Count 177 Mean Platelet Volume 7.7 Neutrophils (%) (Auto) 68.5 Lymphocytes (%) (Auto) 18.7 Monocytes (%) (Auto) 9.7 Eosinophils (%) (Auto) 2.6 Basophils (%) (Auto) 0.5 Neutrophils # (Auto) 5.6 Lymphocytes # (Auto) 1.5 Monocytes # (Auto) 0.8 Eosinophils # (Auto) 0.2 Basophils # (Auto) 0.0 CBC Comment DIFF FINAL Differential Comment Triglycerides Level 343 Cholesterol Level 228 LDL Cholesterol 106 HDL Cholesterol 53.2 Cholesterol/HDL Ratio 4.28 Diagnostic Tests ECHO--pending cardiac telemetry--Wilmer Obrien PhD MD Jan 05, 2017 20:43
[2017-01-05] MEDS: ATORVASTATIN 40 MG TAB PO SCH (20:54)
[2017-01-05] MEDS: ASPIRIN 325 MG TAB PO SCH (21:00)
[2017-01-06] VITALS (13 sets, daily range): BP systolic 122; BP diastolic 60; PULSE 47–63; RESP 21; TEMP 97.8; O2SAT 94–97
[2017-01-06] MEDS: INSULIN ASPART SUPPLEMENTAL SCALE SQ SCH ×4 (08:00→20:19)
[2017-01-06] MEDS: SODIUM CHLORIDE 0.9% FLUSH 5 ML FLUSH IV FLUSH SCH ×2 (09:00→20:09)
[2017-01-06] MEDS: FAMOTIDINE 20 MG/2 ML VIAL IV PUSH SCH ×2 (09:11→20:09)
[2017-01-06] MEDS: ASPIRIN 325 MG TAB PO SCH (09:12)
--- NOTE | 2017-01-06 15:39 | HHI.PR ---
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 Patient is currently doing well. He believes he is a speech is getting better. However his left arm weakness is not improving. Objective Vitals Vital Signs Date Time Temp Pulse Resp B/P (MAP) Pulse Ox O2 Delivery O2 Flow Rate FiO2 01/06/17 14:00 59 01/06/17 12:00 56 01/06/17 10:00 61 01/06/17 08:21 94 01/06/17 08:00 97 Room Air 01/06/17 08:00 47 01/06/17 06:00 60 01/06/17 04:00 59 01/06/17 00:00 52 01/05/17 22:00 60 01/05/17 20:00 55 01/05/17 20:00 99 Room Air 01/05/17 18:00 67 01/05/17 16:00 52 I/O 01/05/17 01/05/17 01/05/17 01/06/17 01/06/17 01/06/17 07:00 15:00 23:00 07:00 15:00 23:00 Intake Total 960 ml 400 ml Output Total 1400 ml 900 ml 800 ml Balance -1400 ml 60 ml -400 ml Intake Oral 960 ml 400 ml Output Urine Total 1400 ml 900 ml 800 ml # Voids 3 4 # Bowel Movements 1 Result Diagram: 01/05/17449 Imaging Last Impressions Head CT 01/05/17 0000 Signed Impressions: Service Date/Time: Thursday, January 05, 2017 05:01 - CONCLUSION: Small evolving stroke in the basal ganglia on the right extending into the deep white matter tracks. Corresponds exactly with previous MRI. No evidence of hemorrhage. No additional lesions are seen. Myron Bose MD Neck CTA 01/04/17 0410 Signed Impressions: Service Date/Time: Wednesday, January 04, 2017 04:13 - CONCLUSION: Normal examination. There is eccentric calcification through the internal carotid bulbs without two-dimensional stenosis. Myron Bose MD Head CTA 01/04/17 0410 Signed Impressions: Service Date/Time: Wednesday, January 04, 2017 04:14 - CONCLUSION: Normal examination. Myron Bose MD Brain MRI 01/04/17 0000 Signed Impressions: Service Date/Time: Wednesday, January 04, 2017 11:48 - CONCLUSION: Restricted diffusion extending across the posterior limb internal capsule right hemisphere consistent with acute stroke without hemorrhage. Juan F Rubio MD FACR Objective Remarks GENERAL: Alert, oriented 3, NAD. SKIN: Warm and dry. HEAD: Normocephalic. EYES: No scleral icterus. No injection or drainage. NECK: Supple, trachea midline. No JVD or lymphadenopathy. CARDIOVASCULAR: Regular rate and rhythm without murmurs, gallops, or rubs. RESPIRATORY: Breath sounds equal bilaterally. No accessory muscle use. GASTROINTESTINAL: Abdomen soft, non-tender, nondistended. MUSCULOSKELETAL: No cyanosis, or edema. Significant weakness on the left lower extremity as well as left upper extremity. BACK: Nontender without obvious deformity. No CVA tenderness. Procedures TPA administration on 01/04/2017. A/P Problem List: (1) Acute ischemic stroke ICD Code: I63.9 - Cerebral infarction, unspecified Status: Acute (2) Hyperlipidemia ICD Code: E78.5 - Hyperlipidemia, unspecified Status: Chronic Assessment and Plan 61 year old ofqfm-[id number]-[id number] male with past medical history of hyperlipidemia who presented to [facility] emergency department on 01/04/2017 with left hemiparesis and left facial droop. No prior h/o stroke or A fib. He was evaluated by Dr. Rosenbaum. He received TPA at 04:29. He was subsequently observed in the ICU. - Acute ischemic stroke - MRI indicates involvement of posterior limb of right sided internal capsule. - Status post TPA administration. - Patient never required Cardene drip for blood pressure control - Aspirin 325 mg daily started on 01/05/2017. - Neurology recommends possible discharge on 01/08/2017. - Head and neck CTA unremarkable - Echocardiogram report pending - Hyperlipidemia - Triglyceride 343, total cholesterol 228, LDL 106, HDL 53.2. - Continue Lipitor 40 mg daily at bedtime. - If unable to tolerate, encouraged patient to discuss with his primary care provider regarding other statins. Full code. Ambulation. Transfer patient to the floor. Discharge likely on 01/08/2017. Aydin Ortega DO Jan 06, 2017 3:39 pm
--- NOTE | 2017-01-06 17:10 | ECHRPT ---
Indication: CVA/TIA CONCLUSIONS Normal left ventricular size and function. Wall thickness is normal. [id number] mitral valve regurgitation. There is trace tricuspid valve regurgitation. BP: 128 / 73 HR: Rhythm: Sinus MEASUREMENTS (Male / Female) Normal Values Technical Quality:Fair 2D ECHO LV Diastolic Diameter PLAX 5.3 cm 4.2 - 5.9 / 3.9 - 5.3 cm LV Systolic Diameter PLAX 3.8 cm IVS Diastolic Thickness 0.7 cm 0.6 - 1.0 / 0.6 - 0.9 cm LVPW Diastolic Thickness 0.7 cm 0.6 - 1.0 / 0.6 - 0.9 cm LV Relative Wall Thickness 0.3 LVOT Diameter 1.9 cm Aortic Root Diameter 3.2 cm LA Systolic Diameter LX 3.5 cm 3.0 - 4.0 / 2.7 - 3.8 cm M-MODE AV Cusp Separation MM 1.9 cm DOPPLER AV Peak Velocity 117.0 cm/s AV Peak Gradient 5.5 mmHg AV Mean Gradient 3.0 mmHg AV Velocity Time Integral 23.1 cm LVOT Peak Velocity 63.2 cm/s LVOT Peak Gradient 1.6 mmHg LVOT Velocity Time Integral 14.2 cm AV Area Cont Eq vti 1.7 cm AV Area Cont Eq pk 1.5 cm Mitral E Point Velocity 82.4 cm/s Mitral A Point Velocity 71.1 cm/s Mitral E to A Ratio 1.2 LV E' Lateral Velocity 12.9 cm/s Mitral E to LV E' Lateral Ratio 6.4 LV E' Septal Velocity 7.2 cm/s Mitral E to LV E' Septal Ratio 11.4 TR Peak Velocity 180.0 cm/s TR Peak Gradient 13.0 mmHg Right Atrial Pressure 10.0 mmHg Pulmonary Artery Systolic Pressu 23.0 mmHg Right Ventricular Systolic Press 23.0 mmHg PV Peak Velocity 48.1 cm/s PV Peak Gradient 0.9 mmHg FINDINGS LEFT VENTRICLE Normal left ventricular size. Wall thickness is normal. The left ventricular systolic function is normal with an estimated ejection fraction in the range of 60-65%. RIGHT VENTRICLE Normal right ventricular size and systolic function. LEFT ATRIUM The left atrial size is normal. RIGHT ATRIUM The right atrial size is normal. ATRIAL SEPTUM Normal atrial septal thickness without atrial level shunting by limited color doppler interrogation. AORTA The aortic root and proximal ascending aorta are normal in size on limited imaging. MITRAL VALVE [id number]-si-pwfm mitral valve regurgitation. AORTIC VALVE Trileaflet aortic valve. No aortic valve stenosis or regurgitation. TRICUSPID VALVE There is trace tricuspid valve regurgitation. PULMONARY VALVE No pulmonary valve regurgitation or stenosis. VESSELS The inferior vena cava is normal in size. PERICARDIUM No pericardial effusion. Sanchez Henriquez MD (Electronically Signed) Final Date:06 January 2017 17:09
--- NOTE | 2017-01-06 19:32 | HHI.PR ---
Review/Management Diagnosis right basal ganglia cva, s/p iv TPA--exam stable Plan start aspirin 325 mg daily continue statin continue PT/OT/ speech therapy recommend cardiology evaluation as outpatient for correction secured entrance monitor to r /o afib as a cause of the stroke. He states he has appointment set up with Doctor Of Audiology in his home town in [place] next week. I advised he not travel for one week after the stroke. Diagnosis/Plan: Subjective Subjective Comments No acute events reported still very weak left upper extremity especially distally Active Medications Current Medications Medications (Trade) Dose Ordered Sig/Melvin Route Start Time Stop Time Status Last Admin (NS Flush) 2 ml BID IV FLUSH 01/04/17 09:00 01/06/17 09:00 (NS Flush) 2 ml UNSCH PRN IV FLUSH 01/04/17 06:00 (Trandate Inj) 10 mg Q2H PRN IV PUSH 01/04/17 06:00 (NovoLOG SUPPLEMENTAL SCALE) 1 ACHS SQ 01/04/17 08:00 (D50w (Vial) Inj) 50 ml UNSCH PRN IV PUSH 01/04/17 06:00 (Glucagon Inj) 1 mg UNSCH PRN OTHER 01/04/17 06:00 (Pepcid Inj) 20 mg Q12H IV PUSH 01/04/17 08:00 01/06/17 09:11 (Lipitor) 40 mg HS PO 01/05/17 21:00 01/05/17 20:54 (Aspirin) 325 mg DAILY PO 01/05/17 20:45 01/06/17 09:12 Allergies Allergies Coded Allergies No Known Allergies (Verified Allergy, Unknown, 01/04/17) Exam I&O / VS 01/06/17 01/06/17 01/07/17 15:00 23:00 07:00 Intake Total 960 ml Output Total 750 ml Balance 210 ml Intake Oral 960 ml Output Urine Total 750 ml # Voids 3 Vital Signs Date Time Temp Pulse Resp B/P (MAP) Pulse Ox O2 Delivery O2 Flow Rate FiO2 01/06/17 18:00 63 01/06/17 16:00 55 01/06/17 14:00 59 01/06/17 12:00 56 01/06/17 10:00 61 01/06/17 08:21 94 01/06/17 08:00 97 Room Air 01/06/17 08:00 47 01/06/17 06:00 60 01/06/17 04:00 59 01/06/17 00:00 52 01/05/17 22:00 60 01/05/17 20:00 55 01/05/17 20:00 99 Room Air Exam Comments speech the same as yesterday--dysarthric but not aphasic. CN--PERRL, EOM intact. Left upper motor neuron CN 7 palsey MOTOR--0/5 left lens matcher, 3/5 left biceps. 3/5 left triceps. 3/5 left deltoid 4/5 LLE Objective Diagnostic Tests ECHOCARDIOGRAM---no embolic source seen Wilmer Rosenbaum PhD Jan 06, 2017 19:32
[2017-01-06] MEDS: ATORVASTATIN 40 MG TAB PO SCH (20:10)
[2017-01-07] VITALS (13 sets, daily range): BP systolic 114–145; BP diastolic 65–76; PULSE 50–70; RESP 16–24; TEMP 97.6–98.4; O2SAT 95–98
[2017-01-07] MEDS: INSULIN ASPART SUPPLEMENTAL SCALE SQ SCH ×4 (08:00→20:11)
--- NOTE | 2017-01-07 08:00 | HHI.PR ---
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 Patient is doing well. No acute concerns. Left arm still weak. Objective Vitals Vital Signs Date Time Temp Pulse Resp B/P (MAP) Pulse Ox O2 Delivery O2 Flow Rate FiO2 01/07/17 07:00 97 Room Air 01/07/17 06:00 50 01/07/17 04:00 56 01/07/17 04:00 98.2 56 16 131/69 (89) 96 01/07/17 02:00 50 01/07/17 00:00 58 01/07/17 00:00 97.6 58 16 114/68 (83) 95 01/06/17 22:00 54 01/06/17 20:00 58 01/06/17 20:00 97.8 58 21 122/60 (80) 96 01/06/17 19:52 97 01/06/17 19:00 96 Room Air 01/06/17 18:00 63 01/06/17 16:00 55 01/06/17 14:00 59 01/06/17 12:00 56 01/06/17 10:00 61 01/06/17 08:21 94 I/O 01/06/17 01/06/17 01/06/17 01/07/17 01/07/17 01/07/17 07:00 15:00 23:00 07:00 15:00 23:00 Intake Total 400 ml 960 ml 200 ml Output Total 800 ml 750 ml 325 ml Balance -400 ml 210 ml -125 ml Intake Oral 400 ml 960 ml 200 ml Output Urine Total 800 ml 750 ml 325 ml # Voids 4 3 2 # Bowel Movements 1 Result Diagram: 01/05/17 0450 Imaging Last Impressions Head CT 01/05/17 0000 Signed Impressions: Service Date/Time: Thursday, January 05, 2017 05:01 - CONCLUSION: Small evolving stroke in the basal ganglia on the right extending into the deep white matter tracks. Corresponds exactly with previous MRI. No evidence of hemorrhage. No additional lesions are seen. Myron Bose MD Neck CTA 01/04/17 0410 Signed Impressions: Service Date/Time: Wednesday, January 04, 2017 04:13 - CONCLUSION: Normal examination. There is eccentric calcification through the internal carotid bulbs without two-dimensional stenosis. Myron Bose MD Head CTA 01/04/17 0410 Signed Impressions: Service Date/Time: Wednesday, January 04, 2017 04:14 - CONCLUSION: Normal examination. Myron Bose MD Brain MRI 01/04/17 0000 Signed Impressions: Service Date/Time: Wednesday, January 04, 2017 11:48 - CONCLUSION: Restricted diffusion extending across the posterior limb internal capsule right hemisphere consistent with acute stroke without hemorrhage. Juan F Rubio MD FACR Objective Remarks GENERAL: Alert, oriented 3, NAD. SKIN: Warm and dry. HEAD: Normocephalic. EYES: No scleral icterus. No injection or drainage. NECK: Supple, trachea midline. No JVD or lymphadenopathy. CARDIOVASCULAR: Regular rate and rhythm without murmurs, gallops, or rubs. RESPIRATORY: Breath sounds equal bilaterally. No accessory muscle use. GASTROINTESTINAL: Abdomen soft, non-tender, nondistended. MUSCULOSKELETAL: No cyanosis, or edema. Significant weakness on the left lower extremity as well as left upper extremity. BACK: Nontender without obvious deformity. No CVA tenderness. Procedures TPA administration on 01/04/2017. A/P Problem List: (1) Acute ischemic stroke ICD Code: I63.9 - Cerebral infarction, unspecified Status: Acute (2) Hyperlipidemia ICD Code: E78.5 - Hyperlipidemia, unspecified Status: Chronic Assessment and Plan 61 year old lunoc-phfk-efuhhxwr male with past medical history of hyperlipidemia who presented to [facility] emergency department on 01/04/2017 with left hemiparesis and left facial droop. No prior h/o stroke or A fib. He was evaluated by Dr. Rosenbaum. He received TPA at 04:29. He was subsequently observed in the ICU. - Acute ischemic stroke - MRI indicates involvement of posterior limb of right sided internal capsule. - Status post TPA administration. - Patient never required Cardene drip for blood pressure control - Aspirin 325 mg daily started on 01/05/2017. - Neurology recommends possible discharge on 01/08/2017. - Head and neck CTA unremarkable - Echocardiogram unremarkable. - Neurology is recommending possible loop recorder when patient is back to [place]. - Hyperlipidemia - Triglyceride 343, total cholesterol 228, LDL 106, HDL 53.2. - Continue Lipitor 40 mg daily at bedtime. - If unable to tolerate, encouraged patient to discuss with his primary care provider regarding other statins. Full code. Ambulation. Transfer patient to the floor. Discharge likely on 01/08/2017. Aydin Ortega DO Jan 07, 2017 08:00
[2017-01-07] MEDS: FAMOTIDINE 20 MG/2 ML VIAL IV PUSH SCH ×2 (08:29→20:27)
[2017-01-07] MEDS: ASPIRIN 325 MG TAB PO SCH (08:30)
[2017-01-07] MEDS: SODIUM CHLORIDE 0.9% FLUSH 5 ML FLUSH IV FLUSH SCH ×2 (08:30→20:27)
[2017-01-07] MEDS: ATORVASTATIN 40 MG TAB PO SCH (20:27)
[2017-01-08] VITALS: BP 110/73; PULSE 56; RESP 12; TEMP 97.9; O2SAT 96
[2017-01-08 02:00] VITALS: PULSE 56
[2017-01-08 04:00] VITALS: BP 102/62; PULSE 55; RESP 12; TEMP 98.1; O2SAT 96
[2017-01-08 05:40] LABS: THROMBIN TIME FOR LA ND sec (13-19)
[2017-01-08 06:00] VITALS: PULSE 51
[2017-01-08] MEDS: FAMOTIDINE 20 MG/2 ML VIAL IV PUSH SCH (07:37)
[2017-01-08] MEDS: ASPIRIN 325 MG TAB PO SCH (07:38)
[2017-01-08] MEDS: SODIUM CHLORIDE 0.9% FLUSH 5 ML FLUSH IV FLUSH SCH (07:38)
[2017-01-08] MEDS: INSULIN ASPART SUPPLEMENTAL SCALE SQ SCH (07:49)
[2017-01-08 08:00] VITALS: BP 133/64; PULSE 68; PULSE 69; RESP 16; TEMP 98.9; O2SAT 96
[2017-01-08] MEDS ORDERED: ATOR40TA16 PO (09:28)
[2017-01-08] MEDS ORDERED: ASA325 PO (09:28)
--- NOTE | 2017-01-08 09:38 | HHI.DS ---
Discharge Summary Admission Date Jan 04, 2017 at 5:36 am Discharge Date: Jan 08, 2017 Admitting Diagnosis stroke alert w/ tpa (1) Acute ischemic stroke ICD Code: I63.9 - Cerebral infarction, unspecified Diagnosis: Principal Status: Acute (2) Hyperlipidemia ICD Code: E78.5 - Hyperlipidemia, unspecified Status: Chronic Procedures TPA administration on 01/04/2017. Brief History - From Admission 61 year old [id number] male with past medical history of hyperlipidemia who presented to [facility] emergency department with left hemiparesis and left facial droop. He states he went to bed last night at around 10 PM. He woke up around 3 AM to go to the bathroom and states he ambulated to the bathroom without difficulty. He states he then woke up again at about 3:30 or 4 AM and he says his left upper extremity was tangled around in the bed sheets but he realized that he could not move it to get it untangled and then rolled off the bed to the floor. No head trauma or LOC. He alerted his who noticed he had L facial droop and L hemiparesis. No prior h /o stroke or A fib. Stroke alert was called. CT brain was negative. He was evaluated by Dr. Rosenbaum. He received TPA at 04:29. He has some slurred speech. Left hemiparesis is improving. He denies headache, seizures, neck pain. Remainder of review of systems negative CBC/BMP: 01/05/17 0450 Imaging Last Impressions Head CT 01/05/17 0000 Signed Impressions: Service Date/Time: Thursday, January 05, 2017 05:01 - CONCLUSION: Small evolving stroke in the basal ganglia on the right extending into the deep white matter tracks. Corresponds exactly with previous MRI. No evidence of hemorrhage. No additional lesions are seen. Myron Bose MD Neck CTA 01/04/17 0410 Signed Impressions: Service Date/Time: Wednesday, January 04, 2017 04:13 - CONCLUSION: Normal examination. There is eccentric calcification through the internal carotid bulbs without two-dimensional stenosis. Myron Bose MD Head CTA 01/04/17 0410 Signed Impressions: Service Date/Time: Wednesday, January 04, 2017 04:14 - CONCLUSION: Normal examination. Myron Bose MD Brain MRI 01/04/17 0000 Signed Impressions: Service Date/Time: Wednesday, January 04, 2017 11:48 - CONCLUSION: Restricted diffusion extending across the posterior limb internal capsule right hemisphere consistent with acute stroke without hemorrhage. Juan F Rubio MD FACR PE at Discharge GENERAL: Alert, oriented 3, NAD. SKIN: Warm and dry. HEAD: Normocephalic. EYES: No scleral icterus. No injection or drainage. NECK: Supple, trachea midline. No JVD or lymphadenopathy. CARDIOVASCULAR: Regular rate and rhythm without murmurs, gallops, or rubs. RESPIRATORY: Breath sounds equal bilaterally. No accessory muscle use. GASTROINTESTINAL: Abdomen soft, non-tender, nondistended. MUSCULOSKELETAL: No cyanosis, or edema. Significant weakness on the left lower extremity as well as left upper extremity. BACK: Nontender without obvious deformity. No CVA tenderness. Pt update on day of discharge Follow up for acute stroke. Patient is doing well. He continues to show improvements. No acute concerns. Hospital Course 61 year old [id number] male with past medical history of hyperlipidemia who presented to [facility] emergency department on 01/04/2017 with left hemiparesis and left facial droop. No prior h/o stroke or A fib. He was evaluated by Dr. Rosenbaum. He received TPA at 04:29. He was subsequently observed in the ICU. - Acute ischemic stroke - MRI indicates involvement of posterior limb of right sided internal capsule. - Status post TPA administration. - Patient never required Cardene drip for blood pressure control - Aspirin 325 mg daily started on 01/05/2017. - Neurology recommends discharge on 01/08/2017. - Head and neck CTA unremarkable - Echocardiogram unremarkable. - Neurology is recommending possible loop recorder when patient is back to [place]. - Hyperlipidemia - Triglyceride 343, total cholesterol 228, LDL 106, HDL 53.2. - Continue Lipitor 40 mg daily at bedtime. - Other - Outpatient PT/OT 3-4 times a day as needed or as necessary after initial evaluation. - Loop recorder to detect any cardiac dysrhythmia such as Afib. - Airplane travel is okay after Wednesday01/10/2017. Full code. Ambulation. Pt Condition on Discharge: Good Discharge Disposition: Discharge Home Discharge Time: > 30 minutes Discharge Instructions DIET: Follow Instructions for: As Tolerated, No Restrictions Activities you can perform: Regular-No Restrictions Follow up Referrals: Cardiology - 1 Week Neurology - 1 Week Occupational Therapy PCP Follow-up - 1 Week Physical Therapy New Medications: Aspirin (Px Aspirin) 325 Mg Tab 325 MG PO DAILY for Blood Clot Prevention, #90 TAB Atorvastatin (Atorvastatin) 40 Mg Tab 40 MG PO HS for Cholesterol Management, #90 TAB 3 Refills Discontinued Medications: Rosuvastatin (Crestor) 5 Mg Tab 2.5 MG PO DAILY for Cholesterol Management, #30 TAB 0 Refills Aydin Ortega DO Jan 08, 2017 9:38 am
[2017-01-08 10:00] VITALS: PULSE 55
== END 2017-01-08 12:06 | disposition home or self-care (01) | DRG 62 ==
LOC: NEPC 03:59 → NEDA 05:36 → N03B 06:34
PROVIDERS: ADMIT Hospitalist; ATTEND Hospitalist
DX: I63.9 Cerebral infarction, unspecified (principal); G81.94 Hemiplegia, unspecified affecting left nondominant side; R29.810 Facial weakness; R47.81 Slurred speech; E78.5 Hyperlipidemia, unspecified; Z91.14 Patient's other noncompliance with medication regimen; Z87.891 Personal history of nicotine dependence
CPT/HCPCS: 70450; 70496; 70498; 70553; 80061; 80307; 81001; 81240; 81241; 82435; 82550; 82565; 82947; 82948; 83036; 84132; 84295; 84484; 84520; 85025; 85303; 85306; 85384; 85610; 85613; 85730; 86147; 86850; 86900; 86901; 87641; 93005; 93306; 96365; 96375; A9579; J1815; J2997; J7030; Q9967